=== PATIENT | female | born 1975 | race Caucasian/White ===

== ENCOUNTER 2024-01-26 14:20 | Emergency (ER) | payer BC, SELFPAY ==
[2024-01-26 14:23] VITALS: BP 127/74
--- NOTE | 2024-01-26 15:10 | ED.GENMED ---
History of Present Illness
<Bernadette Ballesteros PA-C - Last Filed: 01/26/24 17:34>
General
Chief Complaint: DVT/Possible Blood Clot
Source: patient
Exam Limitations: none
Time Seen by Provider: 01/26/24 14:47
Nursing documentation reviewed up to this point in time: agreed with
Travel History
Have you had any contact with someone who has COVID-19?: No
Do you have any symptoms of coronavirus? Fever > 100 degrees, chills, cough, shortness of breath, sore throat, loss of taste or smell, muscle aches, or headache?: No
History of Present Illness
History of Present Illness:
Patient is a 48-year-old female with no significant past medical history presenting for evaluation of atraumatic right knee pain. Patient states symptoms started yesterday morning when she woke up and noticed a pain along her right lateral knee.
Pain is worse with flexion of the knee. She has been able to bear weight with some mild discomfort. Patient denies any recent falls or known trauma to the knee. She does however state that her 9-year-old son occasionally gets in bed with her when
he has nightmares and kicks her during his sleep. She is unsure if this may have contributed to pain. She denies any fever, chills, chest pain, shortness of breath, numbness/tingling in lower extremities.
Pain has been present since yesterday morning and when she called her primary care provider earlier today they recommended that she be seen in the emergency department to rule out a blood clot..
Patient denies any recent travel or recent surgeries. Patient denies any hormolne replacement therapy or OCP. She denies any personal history of blood clots or known clotting disorders. She denies any family history of blood clots or clotting
disorders.
Past History
<Bernadette Ballesteros PA-C - Last Filed: 01/26/24 17:34>
Past History
ED Past Medical History: Other (Endometriosis)
ED Past Surgical History: Gynecological
Social History
Tobacco: Non-smoker
Personal:
Living: with family
Employment: Employed
Phy Exam
<Bernadette Ballesteros PA-C - Last Filed: 01/26/24 17:34>
Physical Exam
Physical Exam:
General: In no apparent distress, non-toxic
Vitals: Vital signs stable, afebrile
HEENT: Atraumatic, normocephalic; pupils equal round reactive light bilaterally, protecting airway
Neck: appears supple, no JVD
CV: Regular rate and rhythm, heart sounds normal, no evidence of cyanosis
Resp: No evidence of respiratory distress, lungs clear bilaterally without any wheezes, rales, rhonchi
Abd: Non-distended
Extremities: Mild tenderness to right lateral knee without any obvious deformity, effusion, redness; full active range of motion at knee; right lower extremity neurovascular intact; no tenderness of right calf, negative Homans' sign bilaterally, no
tenderness of the right hip or right ankle
Neuro: alert and oriented; grossly intact
Psych: Normal affect
Skin: Intact, no rashes
Course
<Bernadette Ballesteros PA-C - Last Filed: 01/26/24 17:34>
Orders/Labs/Results
Orders:
Orders
01/26/24 15:35
Knee, Right 4 or More Views [CR Knee- Right 4 Or More View*] Urgent
Comment:
Reason For Exam: right lateral knee/popliteal pain
US Legs, Right [US Periph Venous LOWER Ext RT] Urgent
Comment:
Reason For Exam: atraumatic right popliteal/ upper calf pain
Vital Signs
Initial and Last Documented VS:
Initial Vital Signs
Temp Pulse Resp BP Pulse Ox
98.8 F 80 16 127/74 98
01/26/24 14:23 01/26/24 14:23 01/26/24 14:23 01/26/24 14:23 01/26/24 14:23
Last Documented Vital Signs
Temp Pulse Resp BP Pulse Ox
98.8 F 74 16 119/65 98
01/26/24 14:23 01/26/24 17:13 01/26/24 14:23 01/26/24 17:13 01/26/24 14:23
<Jose Manuel Boswell DO - Last Filed: 01/26/24 17:30>
Orders/Labs/Results
Orders:
Orders
01/26/24 15:35
Knee, Right 4 or More Views [CR Knee- Right 4 Or More View*] Urgent
Comment:
Reason For Exam: right lateral knee/popliteal pain
US Legs, Right [US Periph Venous LOWER Ext RT] Urgent
Comment:
Reason For Exam: atraumatic right popliteal/ upper calf pain
Vital Signs
Initial and Last Documented VS:
Initial Vital Signs
Temp Pulse Resp BP Pulse Ox
98.8 F 80 16 127/74 98
01/26/24 14:23 01/26/24 14:23 01/26/24 14:23 01/26/24 14:23 01/26/24 14:23
Last Documented Vital Signs
Temp Pulse Resp BP Pulse Ox
98.8 F 74 16 119/65 98
01/26/24 14:23 01/26/24 17:13 01/26/24 14:23 01/26/24 17:13 01/26/24 14:23
<Bernadette Ballesteros PA-C - Last Filed: 01/26/24 17:34>
MDM/Problems Addressed
Differential Diagnosis Includes:
Knee sprain, arthritis, doubt fracture, doubt DVT,
MDM/Problems Addressed:
Patient is a 48-year-old female with no significant past medical history presenting for evaluation of atraumatic right knee pain present since yesterday. No known inciting injury or trauma to the area. No fever, chills, chest pain, shortness of
breath. Patient with specific concern for DVT after speaking with primary care physician, although she has no history of blood clots or clotting disorders nor any risk factors for blood clots. Patient's vital signs are stable on arrival, she is
afebrile. Physical exam as documented above. She has very mild tenderness to the lateral aspect of right knee without any obvious effusion or deformity. She is ambulating well in room. Given that there is no redness, warmth, effusion�do not
suspect septic arthritis. Will check ultrasound and x-ray of right knee. Suspect likely sprain of right knee.
Ultrasound negative for any sign of DVT. X-ray shows no evidence of acute fracture or dislocation. Suspect this is likely a muscular strain. Stable for discharge with return precautions, Trevor wrap. Patient will follow-up with orthopedics if
symptoms persist or worsen.
Chronic conditions affecting care:
N/A
Acute Exacerbation and/or Progression of Chronic Illness:
N/A
<Bernadette Ballesteros PA-C - Last Filed: 01/26/24 17:34>
*Radiology
Radiology exam reviewed: preliminary read by ED provider and radiology read reviewed
*Pulse Oximetry
Patient hypoxic: no
*EKG
Interpreted by ED Provider?: NA
*Chemical Dependency Therapist Interpretation
Rate: Chemical Dependency Therapist- N/A
*Critical Care Note
Total Time (30-74mins, 75-104mins- exclusive of procedures): Not Applicable
ED Attending Note
<Bernadette Ballesteros PA-C - Last Filed: 01/26/24 17:34>
-
Portions of this chart may have been created with voice recognition software.� Occasional wrong word or��sound alike� substitutions may have occurred due to the inherent limitations of voice recognition software.
<Jose Manuel Boswell DO - Last Filed: 01/26/24 17:30>
ED Attending Note
Patient seen and examined by attending physician: Yes
I performed a history and physical exam of patient and discussed management with resident, I reviewed resident's note and agree with documented findings and plan of care.: Yes
ED Attending Note:
I have reviewed and agree with history and treatment plan by Bernadette Ballesteros. My exam revealed 48-year-old female with mild tenderness palpation right proximal lateral lower leg. No signs of fracture or DVT on ultrasound. Stable discharge.
Follow-up with primary care
Discharge Plan
Departure
Patient Disposition: Home (Routine Discharge)
Date of Disposition: 01/26/24
Time of Disposition: 17:27
Patient with high blood pressure during this ER visit?: Yes
Condition: Good
Covid-19: Not Applicable
Discharge Problem:
Knee pain, right
Instructions: Knee Sprain (DC)
Prescriptions:
No Action
famotidine 20 MG tablet
20 mg PO DAILY
Referrals:
Woody Burns MD [Active] - As needed
Activity Restrictions/Additional Instructions:
- Return to the emergency department with any high fever, chest pain, shortness of breath, intractable pain, worsening swelling or redness of right lower extremity, numbness/tingling of right lower extremity, worsening current symptoms, or any other
concerns
-You can take Motrin/Tylenol as needed for discomfort
-Follow-up with orthopedics if symptoms persist/worsen
Interventions
Interventions:
*Risk Screen - Suicide Last Done: 01/26/24 14:23
*General Assessment Last Done: 01/26/24 14:23
*Neglect/Abuse Screening Last Done: 01/26/24 14:23
*ED COVID-19 Vaccine History Last Done: 01/26/24 16:44
ED- Cardiac Assessment Last Done: 01/26/24 16:44
ED- Pulmonary Assessment Last Done: 01/26/24 16:44
ED-Peripheral Vascular Assessment Last Done: 01/26/24 16:44
ED-Skin Assessment Last Done: 01/26/24 16:44
Discharge Date and Time
Print Language: MALDIVIAN
[2024-01-26 17:13] VITALS: BP 119/65
[2024-01-26 17:39] VITALS: BP 119/65
== END 2024-01-26 17:40 | disposition home or self-care (01) ==
LOC: EMR 14:20
PROVIDERS: EMERGENCY PHYSICIAN Emergency Medicine; FAMILY PHYSICIAN Nurse Practitioner Adult Health
DX: M25.561 Pain in right knee (principal); N80.9 Endometriosis, unspecified
CPT/HCPCS: 99284; 73564; 93971